=== PATIENT | female | born 1990 | race Caucasian/White ===

== ENCOUNTER 2016-07-06 19:44 | Emergency (ER) | payer SELFPAY ==
[~2016-07-06] VITALS: Ht 167.6 cm; Wt 71.0 kg
[2016-07-06] MEDS ORDERED: ATIVAN1 MG PO (22:14)
[2016-07-06] MEDS ORDERED: ZOFRAN4 MG PO (22:16)
[2016-07-06 22:27] VITALS: BP 121/67
== END 2016-07-06 22:29 | disposition home or self-care (01) ==
LOC: RME 19:44 → EME 19:44 → RME 22:29
DX: F41.1 Generalized anxiety disorder (principal)
CPT/HCPCS: 99281; 99284; J2060; Q0177